=== PATIENT | female | born 1990 | race Caucasian/White ===

== ENCOUNTER → 2021-09-15 | Outpatient (CLI) | payer OTHER ==
--- NOTE | 2021-09-15 16:58 | RAD ---
Ultrasound pelvis complete and transvaginal ultrasound pelvis Sonographic examination of the pelvis was performed by transabdominal and endovaginal technique. Mult iple images were obtained. Ultrasound pelvis complete transabdominal: The uterus measures 8.9 x 4.8 x 4.2 cm. Transvaginal ultrasound pelvis: The uterus appears normal. Attenuation measures 10 mm in thickness. The right ovary measures 4.5 x 3.9 x 2.9 cm and has normal blood flow. There is a 3.5 x 3.8 x 2.1 cm hemorrhagic cyst. The left ovary appears normal with normal blood flow measures 3.1 x 2.4 x 2.470. There are multiple f ollicles in the ovaries bilaterally. There is prominent vascularity in the pelvis. IMPRESSION: 1. Multiple follicles bilaterally. Polycystic ovarian syndrome is possible and clinical correlation s uggested. 2. Prominent vascularity could be pelvic congestion. 3. Probable hemorrhagic cyst in the right ovary. This interpretation assumes the patient is not . Electronically signed by: Michael Sage III, MD (09/15/2021 4:56 PM) [facility]
== END ==
LOC: US 15:46
PROVIDERS: ATTEND Nurse Practitioner Family
DX: R10.2 Pelvic and perineal pain (principal)
CPT/HCPCS: 76830; 76856